=== PATIENT | male | born 1975 | race Caucasian/White ===

== ENCOUNTER 2024-08-14 03:20 | Emergency (ER) | payer MEDICAID, SELFPAY ==
[2024-08-14] VITALS (7 sets, daily range): BP systolic 107–121; BP diastolic 50–75; PULSE 83–95; RESP 14–20; TEMP 36.7–36.8; O2SAT 92–96; BMI 30.9
--- NOTE | 2024-08-14 | ECG_ITS ---
Test Reason : CHEST PAIN Blood Pressure : */* mmHG Vent. Rate : 78 BPM Atrial Rate : 78 BPM P-R Int : 124 ms QRS Dur : 86 ms QT Int : 392 ms P-R-T Axes : 42 52 44 degrees QTcB Int : 446 ms Normal sinus rhythm Nonspecific ST abnormality Abnormal ECG When compared with ECG of 17-Jul-2017 13:31, Non-specific change in ST segment in Anterolateral leads Referred By: Generic ED Physician Electronically Signed By: Parish Villegas
--- NOTE | 2024-08-14 04:21 | ED.CHESTPAIN ---
HPI - Chest Pain General Chief Complaint: Chest Pain Stated Complaint: CP x1 hour Time Seen by Provider: 08/14/24 04:21 Source: patient Mode of arrival: EMS Limitations: no limitations History of Present Illness ED Provider: HPI narrative: Patient apparently use cocaine last night started having some chest pain and then he took methadone in the Narcan felt better now pain lasted for about 10 minutes no history of similar chest pain in the past but has used cocaine no known coronary artery disease Related Data Allergies Allergy/AdvReac Type Severity Reaction Status Date / Time mayonnaise [MAYONNAISE] Allergy Unknown RASH Unverified 08/14/24 03:40 Review of Systems Review of Systems: Yes all other systems are reviewed and are negative [facility] Social History Social History Smoked in Last 30 Days: No Substance Use Type: Crack/Cocaine Substance Use Frequency: Monthly Last Used Substance: Hours (ago) Advance Directives: No Advance Directives Information Provided: Yes Do you have a plan to hurt others: No Plan Physical Exam Vital Signs: Vital Signs: Last Vital Signs Temp 98.2 F 08/14/24 06:31 Pulse 86 08/14/24 06:31 Resp 18 08/14/24 06:31 BP 117/67 08/14/24 06:31 Pulse Ox 93 08/14/24 06:31 O2 Del Method Room Air 08/14/24 06:31 BMI result Body Mass Index 30.9 Appearance: Alert. Oriented X3. No acute distress. Anxious Eyes: PERRLA, No Nystagmus ENT: Pharynx normal. Oral Mucosa moist Neck: Normal inspection. Neck supple. CVS: Normal heart rate and rhythm. Pulses normal. Respiratory: No respiratory distress. Equal air entry bilateral, no wheezing/rales/rhonchi Abdomen: Soft and nontender. Bowel sounds are present, no mass palpable, no CVA tenderness Skin: Skin warm and dry. Normal skin color. Normal skin turgor. Extremities: No lower extremity edema. No calf tenderness Neuro: Oriented X 3. No motor deficit. No sensory deficit.No cerebellar signs , cranial nerves II-XII intact Medical Decision Making Medical Decision Making MDM Narrative: Patient has atypical chest pain with substance abuse no EKG changes of ischemia 2 sets of troponin negative discharge patient home advised not to smoke cocaine Differential Diagnosis Differential Diagnoses: The differential diagnosis associated with the presentation includes ACS/acute VA/anxiety Lab Data [facility] Lab Attestation statement: I reviewed the patient's lab results. 08/14/24 04:26 08/14/24 04:26 Labs: Lab Results 08/14/24 Range/Units 04:26 WBC 10.3 (4.8-10.8) X10*3/uL RBC 4.78 (4.60-5.80) X10*6/uL Hgb 13.9 L (14.0-18.0) g/dl Hct 39.5 L (42.0-52.0) % MCV 82.6 (80.0-98.0) fL MCH 29.1 (27.0-33.0) pg MCHC 35.2 (31.0-36.0) g/dl RDW 12.4 (11.0-16.0) % Plt Count 259 (160-400) X10*3/uL MPV 10.0 (9.4-12.4) fL Immature Gran % (Auto) 0.2 (0.0-0.4) % Neut % (Auto) 69.4 (45-73) % Lymph % (Auto) 20.0 (20-40) % Clark % (Auto) 9.2 (2-11) % Eos % (Auto) 0.7 (0-4) % Baso % (Auto) 0.5 (0-2) % Lymph # (Auto) 2.1 (1.2-4.9) X10*3/uL Clark # (Auto) 1.0 (0.1-1.2) X10*3/uL Eos # (Auto) 0.1 (0.0-0.4) X10*3/uL Baso # (Auto) 0.1 (0.0-0.2) X10*3/uL Abs Immat Gran (auto) 0.02 (0.00-0.03) X10*3/uL Absolute Neuts (auto) 7.2 (2.0-8.3) x10*3/uL Absolute Nucleated RBC 0.000 (0.0-0.012) X10*3/uL Nucleated RBC % (auto) 0.0 (0.0-0.2) /100WBC Sodium 139 (135-145) mmol/L Potassium 3.6 (3.3-5.1) mmol/L Chloride 106 (96-108) mmol/L Carbon Dioxide 22 (22-29) mmol/L Anion Gap 15 (12-20) BUN 23 H (9-16) mg/dL Creatinine 1.11 (0.5-1.4) mg/dL Estim Creat Clear Calc 107.1 Estimated GFR > 60 Random Glucose 109 (60-115) mg/dL Calcium 8.6 (8.4-10.2) mg/dL Troponin I High Sens < 2.7 (<3.5-35.0) ng/L Independent Interpretation I performed an independent interpretation of an: EKG Interpretation: Normal sinus rhythm heart rate 78 beats per minute normal interval normal axis no acute ST-T changes no acute ischemia Discharge Plan Discharge Clinical Impression: Chest pain, Cocaine abuse Patient Disposition: Home, Self-Care Instructions: Chest Pain (ED), Cocaine Abuse (ED) Additional Instructions: Do not use cocaine Follow with detox Print Language: Estonian
[2024-08-14 04:32] LABS: MANUAL DIFF FLAG NO
[2024-08-14 04:33] LABS: Basophils Absolute Auto 0.1 X10*3/uL (0.0-0.2); Basophils Percent Auto 0.5 % (0-2); Eosinophils Absolute Auto 0.1 X10*3/uL (0.0-0.4); Eosinophils Percent Auto 0.7 % (0-4); Hematocrit 39.5 % (42.0-52.0); Hemoglobin 13.9 g/dl (14.0-18.0); Imm Gran Abs Auto 0.02 X10*3/uL (0.00-0.03); Imm Gran Pct Auto 0.2 % (0.0-0.4); Lymphocytes Absolute Auto 2.1 X10*3/uL (1.2-4.9); Mean Corpuscular HGB Conc 35.2 g/dl (31.0-36.0); Mean Corpuscular Hemoglobin 29.1 pg (27.0-33.0); Mean Corpuscular Volume 82.6 fL (80.0-98.0); Monocytes Percent Auto 9.2 % (2-11); Neutrophils Absolute Auto 7.2 x10*3/uL (2.0-8.3); Neutrophils Percent Auto 69.4 % (45-73); Platelet Count 259 X10*3/uL (160-400); Red Blood Count 4.78 X10*6/uL (4.60-5.80); Red Cell Distribution Width 12.4 % (11.0-16.0); White Blood Count 10.3 X10*3/uL (4.8-10.8)
[2024-08-14 04:44] LABS: Anion Gap 15 (12-20); Blood Urea Nitrogen 23 mg/dL (9-16); Calcium 8.6 mg/dL (8.4-10.2); Carbon Dioxide 22 mmol/L (22-29); Chloride 106 mmol/L (96-108); Creatinine Clr Calc Pharmacy 107.1; Estimated Glomerular Filt Rate > 60; Glucose Random 109 mg/dL (60-115); Potassium 3.6 mmol/L (3.3-5.1); Sodium 139 mmol/L (135-145)
[2024-08-14 04:56] LABS: Troponin-I High Sensitivity < 2.7 ng/L (<3.5-35.0)
[2024-08-14 07:42] LABS: Troponin-I High Sensitivity < 2.7 ng/L (<3.5-35.0)
--- NOTE | 2024-08-14 09:00 | PC.NURSE ---
recovery team speaking with the pt
--- NOTE | 2024-08-14 09:35 | PC.NURSE ---
pt sleeping but easily arousable, pt appears jumpy at this time and slightly pinpoint on the pupils pt reports that the methadone just really messed his up, pt oxygen level drops slightly as well from 89-92%on room air, pt denies chest pain at this time bit is haivng lower back pain and bilateral lower extremities a 8/10. pt reports wanting to go to detox for cocaine/heroin pt was still in his street clothes, pt was changed over in hospital attire and belongings secured
[2024-08-14 09:51] LABS: Amphetamine Screen Urine Not Detected (Not Detect); Barbiturates, Urine Not Detected (Not Detect); Benzodiazepines Screen Urine Not Detected (Not Detect); Buprenorphine Scr Not Detected (Not Detect); Cannabinoid Screen Urine Not Detected (Not Detect); Cocaine Screen Urine POSITIVE (Not Detect); Fentanyl, urine Not Detected (Not Detect); Methadone Screen, Urine Positive (Not Detect); Opiate Screen Urine Not Detected (Not Detect); Oxycodone Screen Urine Not Detected (Not Detect); Phencyclidine Screen Urine Not Detected (Not Detect)
--- NOTE | 2024-08-14 11:28 | MHC.RECOVRN ---
ATS (detox) referrals have been sent to the following facilities: 1. [facility] [place] 2. [facility] [place] 3. [facility] [place] [facility]. [facility] [place] 5. [facility] - [place] 6. [facility] - [place] 7. [facility] - [place] 8. [facility] [place] Will follow up via phone call shortly for update.
--- NOTE | 2024-08-14 12:06 | MHC.RECOVRN ---
Pt accepted at [facility] for detox. He is expected there by 3pm. He will be transported by [employer] called by the CARE team. MD and ED nurse aware.
[2024-08-14] MEDS: ondansetron HCL 4 MG/2 ML VIAL IVPUSH (12:27)
--- NOTE | 2024-08-14 21:00 | ECG_ITS ---
Test Reason : QT? Blood Pressure : */* mmHG Vent. Rate : 70 BPM Atrial Rate : 70 BPM P-R Int : 130 ms QRS Dur : 72 ms QT Int : 390 ms P-R-T Axes : 71 23 56 degrees QTcB Int : 421 ms Normal sinus rhythm Possible Left atrial enlargement Borderline ECG When compared with ECG of 14-Aug-2024 03:27, T wave amplitude has increased in Lateral leads Referred By: Neal Gibson Electronically Signed By: GRETEL MATHEW MD
== END 2024-08-14 13:01 | disposition other institution (70) ==
PROVIDERS: Internal Medicine; Physician Assistant Medical; Emergency Provider Emergency Medicine
DX: R07.89 Other chest pain (principal); F14.10 Cocaine abuse, uncomplicated; R94.31 Abnormal electrocardiogram [ECG] [EKG]; Z51.81 Encounter for therapeutic drug level monitoring; Z79.899 Other long term (current) drug therapy
CPT/HCPCS: 36415; 80048; 80307; 84484; 85025; 93005; 96374; 99285; J2405; S9485

== ENCOUNTER → 2024-08-14 03:27 | Outpatient (BNV) | payer MEDICAID, SELFPAY | PROVIDERS: Emergency Provider Emergency Medicine; Visit Provider Internal Medicine Cardiovascular Disease | DX: Z13.6 Encounter for screening for cardiovascular disorders (principal) | CPT/HCPCS: 93010 ==

== ENCOUNTER 2025-06-27 09:42 | Outpatient (AMB) | payer MEDICAID, SELFPAY ==
--- NOTE | 2025-06-27 09:28 | MHC.OFFVIS ---
Intake Visit Reasons: Ingrown toenail Intake Note: ingrown infected pussy redness and hurting , had in growns in the past baxtrom done taken 10 days ago right foot big to Allergies mayonnaise (MAYONNAISE) Allergy (Unknown, Unverified 08/14/24 03:40) RASH HPI HPI Ingrown toenail: Details: The patient is a 50 year old incarcerated male presents for evaluation and management of an infected ingrown toenail right foot. This was previously treated with oral antibiotics however he notes the pain, redness, and purulent drainage has persisted. Denies any fevers. 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 He underwent a procedure with acid application at an emergency room in July. He had a previous procedure for a severe ingrown toenail years ago at [facility]. [facility] Social History Substance Use Type: Crack/Cocaine Review of Systems Const All systems reviewed & are unremarkable except as noted in HPI and below Physical Exam Extrem Other: *Bilateral Lower Extremity Focused Exam Vascular: DP/PT 2/4, CFT<3s to digits, TG warm to cool, moderate joint to the lateral border right hallux Derm: (+) erythema with scant purulent drainage to the lateral border of the right hallux. Neuro: Protective sensation grossly intact to bilateral lower extremities. MSK: Mild tenderness on palpation of the lateral border right hallux Office Procedures AMB Debridement/Avulsion Podia Details: Procedure: Partial Nail Avulsion lateral border Indication: Right Hallux Ingrown toenail Anesthesia: Digital block with 10cc of 1% lidocaine (without epinephrine) mixed with 0.5% Marcaine plain Description: The digit was prepped using betadine. A freer elevator was used to free the lateral border of the nail plate. A nail splitter was used to cut approximately 10-15% of the nail. The offending nail was removed, and a curette was used to inspect for any loose spicules. The wound was irrigated with hydrogen peroxide. The wound was packed with silvadene-gauze strip, 4x4 gauze, and coban. Tolerance: Patient tolerated procedure well, no immediate complications. [id number] Partial/Total nail avulsion (1 nail) Procedure code (CPT) selection complete Office Meds lidocaine HCl 10 mg/mL (1 %) injection solution Performing Provider: Kashmir Chi DPM Performing Location: [facility] [place] [facility] Administered by: Kashmir Chi DPM on 06/27/25 11:52 Dose Route Admin Location Dispensed Lot Number Expiration Date [facility] Billing Clerk 6 mL subcut 6 mL [id number] Total Dispensed Waste 6 mL 0 % bupivacaine (PF) 0.5 % (5 mg/mL) injection solution Performing Provider: Kashmir Chi DPM Performing Location: [facility] Administered by: Kashmir Chi DPM on 06/27/25 11:52 Dose Route Admin Location Dispensed Lot Number Expiration Date [facility] Billing Clerk 4 mL subcut 10 mL [id number] [employer] Total Dispensed Waste 10 mL 60 % Triple Antibiotic 3.5 mg-400 unit-5,000 unit topical ointment packet Performing Provider: Kashmir Chi DPM Performing Location: [facility] [place] [facility] Administered by: Kashmir Chi DPM on 06/27/25 11:52 Dose Route Admin Location Dispensed Lot Number Expiration Date [facility] Billing Clerk 1 appl topical 1 appl [id number] PADAGIS povidone-iodine 10 % topical swab Performing Provider: Kashmir Chi DPM Performing Location: [facility] [place] [facility] Administered by: Kashmir Chi DPM on 06/27/25 11:52 Dose Route Admin Location Dispensed Lot Number Expiration Date [facility] Billing Clerk 1 appl topical 1 appl [id number] [employer]. ethyl chloride 100 % topical spray Performing Provider: Kashmir Chi DPM Performing Location: [facility] [facility] Administered by: Kashmir Chi DPM on 06/27/25 11:52 Dose Route Admin Location Dispensed Lot Number Expiration Date [facility] Billing Clerk 1 appl topical 116 mL [id number] [employer]. Assessment & Plan Assessment & Plan (1) Paronychia of great toe of right foot: Code(s): L03.031 - Cellulitis of right toe Category: Medical Plan: Recommended partial nail avulsion without matrixectomy due to chronic infection that failed oral antibiotics. The chemical matrixectomy (acid procedure) will not be performed today due to the active infection. Partial nail avulsion of the lateral nail border was performed today of the right hallux. It was dressed with antibiotic ointment, 2 x 2 gauze, Band-Aid, and Coban. Instructions were given to the patient/officers in regards to local wound care to be performed at his facility for the next 2-3 weeks. Follow up in 2-3 weeks (2) Cellulitis of right foot: Code(s): L03.115 - Cellulitis of right lower limb Category: Medical Plan: Rx augmentin BID. A paper prescription was handed to the officers to be dispensed at his facility. Orders: Orders AMB Debridement/Avulsion Podiatry Today L03.031 - Cellulitis of right toe, L03.115 - Cellulitis of right lower limb Medications: New amoxicillin-pot clavulanate 875-125 mg Take 1 tablet twice a day 1 tab PO BID 10 tabs 0RF right hallux cellulitis L03.031 - Cellulitis of right toe, L03.115 - Cellulitis of right lower limb Coding Level of Care Code New Pt Level 4 (45457) Diagnoses Paronychia of great toe of right foot L03.031 Cellulitis of right foot L03.115 CPT Codes Skin Debridement - CPT: 16504 Partial/Total nail avulsion (1 nail) ([id number]) Time Spent (min) 20
== END 2025-06-27 10:20 | disposition home or self-care (01) ==
LOC: HO.HPODS 09:42
PROVIDERS: Visit Provider Student in an Organized Health Care Education/Training Program
DX: L03.031 Cellulitis of right toe (principal); L03.115 Cellulitis of right lower limb
CPT/HCPCS: 11730; 99204

== ENCOUNTER → 2025-06-27 09:42 | Outpatient (BNVA) | payer MEDICAID, OTHER, SELFPAY | PROVIDERS: Visit Provider Student in an Organized Health Care Education/Training Program | DX: L03.031 Cellulitis of right toe (principal); L03.115 Cellulitis of right lower limb | CPT/HCPCS: 11730; 99202; J0665; J2003 ==